=== PATIENT | female | born 1990 | race Caucasian/White ===

== ENCOUNTER 2022-10-19 12:29 | Emergency (ER) | payer OTHER, SELFPAY ==
[2022-10-19 13:27] VITALS: BP 148/92; PULSE 105; RESP 16; O2SAT 100; BMI 23.0
--- NOTE | 2022-10-19 13:33 | ED_ITS ---
HPI - General Adult General Chief complaint: Vaginal Bleeding Stated complaint: Possible miscarriage Time Seen by Provider: 10/19/22 13:06 History of Present Illness HPI narrative: pt here with nausea, vomiting since this am after breakfast, has since developed chest pain and SOB, right leg pain 32-year-old woman presenting to the emergency department with concern of some vaginal bleeding. She did take a test picture here she believes is a faint line. Has been trying to become . Does have 1 child. Bleeding just today that seems like menstrual level bleeding. Denies nausea. Related Data Home Medications Medication Instructions Recorded Confirmed No Known Home Medications 10/19/22 10/19/22 Allergies Allergy/AdvReac Type Severity Reaction Status Date / Time Sulfa (Sulfonamide Allergy Severe Hive Verified 10/19/22 13:32 Antibiotics) Review of Systems Status of ROS: Reports: 6 or more systems reviewed and unremarkable except as noted in History and below [facility] Social History Smoking Status: Never smoker Non-prescribed substance use: denies use Exam Narrative: Exam Narrative: Energetic. Positive affect. Breathing easily. NAD. Skin is warm and dry. She is well-perfused without edema. Heart is in an elevated rate but regular rhythm. Abdomen is soft mildly uncomfortable to palpation the suprapubic area. No masses. No flank pain. exam was not done. Const: Vital Signs, click to edit/add: Vital Signs - 24 hr 10/19/22 13:27 Pulse Rate [Pulse Oximeter] 105 H Respiratory Rate 16 Blood Pressure [Ri ght Upper Arm] 148/92 H Pulse Oximetry 109 H Oxygen Delivery Me thod Room Air Documenting provider has reviewed patient's vital signs: yes Course Vital Signs Vital signs: Initial Vital Signs Pulse Rate 105 H 10/19/22 13:27 Pulse Rhythm Regular 10/19/22 13:27 Respiratory Rate 16 10/19/22 13:27 Blood Pressure 148/92 H 10/19/22 13:27 Blood Pressure Mean 110 H 10/19/22 13:27 Pulse Oximetry 100 10/19/22 13:27 Oxygen Delivery Method Room Air 10/19/22 13:27 Vital Signs Pulse Rate 105 H 10/19/22 13:27 Respiratory Rate 16 10/19/22 13:27 Blood Pressure 148/92 H 10/19/22 13:27 Pulse Oximetry 100 10/19/22 13:27 Oxygen Delivery Method Room Air 10/19/22 13:27 Temperature 97.6 F 10/19/22 16:19 Pulse Rate 98 10/19/22 16:19 Respiratory Rate 16 10/19/22 16:19 Blood Pressure 130/78 10/19/22 16:19 Pulse Oximetry 97 10/19/22 16:19 Oxygen Delivery Method Room Air 10/19/22 13:27 Medical Decision Making MDM Narrative Medical decision making narrative: Will check urine for infection and serum quantitative hCG and hemoglobin and blood type. This could be menses. Could be urinary tract infection or atypical kidney stone. Does not require any interventions at this time. Urinalysis positive for blood. HCG is near inconsistent with though not 0. Blood type A positive should not need RhoGAM. INDICATION: Positive home test. Vaginal bleeding. TECHNIQUE: Ultrasound pelvis transvaginal for better assessment or to better visualize the endometrium. COMPARISON: None. FINDINGS: Uterus: Normal echotexture of the myometrium. No masses. Endometrium: Transvaginal imaging was performed to better evaluate the endometrium. Endometrial thickness measures 5 mm. No sign of endometrial mass or fluid. Right ovary 2.2 x 1.3 x 3.5 cm. Left ovary 1.6 x 1.6 x 2.1 cm. No ovarian or adnexal masses. Cul-de-sac: No significant free fluid. IMPRESSION: of unknown location. No intrauterine gestational sac. No adnexal findings to indicate ectopic . Consider short interval follow-up pelvic ultrasound. See patient discharge plan. Lab Data Lab results reviewed: Yes I reviewed the patient's lab results Labs: Lab Results 10/19/22 10/19/22 Range/Units 13:55 14:28 Hgb 13.9 (12.0-16.0) gm/dL HCG, Quant 7.07 mIU/mL Urine Color Yellow (Yellow) Urine Appearance Clear (Clear) Urine pH 7.0 (5.0-8.5) Ur Specific [place] 1.025 (1.000-1.030) Urine Protein Negative (Negative) Urine Glucose (UA) Negative (Negative) Urine Ketones Negative (Negative) Urine Blood 2+ A (Negative) Urine Nitrite Negative (Negative) Urine Bilirubin Negative (Negative) Urine Urobilinogen 0.2 (0.2-1.0) Ur Leukocyte Esterase Negative (Negative) Urine RBC 25-50 A (0-2) Urine WBC 0-2 (0-5) Ur Squamous Epith Cells Few (None-Few) Urine Bacteria Few A (None) Blood Type A Positive Discharge Plan Discharge Clinical Impression: Vaginal bleeding Patient Disposition: Home, Self-Care Condition: Stable Additional Instructions: Stay well-hydrated. Since your blood type is A positive you do not need any RhoGAM. You have an appointment on Saturday in primary care. Recommendations would be to repeat the serum quantitative hCG for trend. Further recommendations for example for ultrasound, would be pending this result. Return otherwise for marked increase in pain or degree of bleeding such that you're soaking through 1 heavy pad an hour for 2 consecutive hours, lightheadedness, shortness of breath, chest pain. Prescriptions: No Action No Known Home Medications Follow Up/Referrals: Micaela Arshad PA-C [Referring] - Stand Alone Forms: [employer] Info Instructions
--- NOTE | 2022-10-19 13:45 | CRLHL7_ITS ---
For Patients: As a result of the Cures Act, medical imaging exams and procedure reports are released immediately into your electronic medical record. You may view this report before your referring provider. If you have questions, please contact your health care provider. INDICATION: Positive home test. Vaginal bleeding. TECHNIQUE: Ultrasound pelvis transvaginal for better assessment or to better visualize the endometrium. COMPARISON: None. FINDINGS: Uterus: Normal echotexture of the myometrium. No masses. Endometrium: Transvaginal imaging was performed to better evaluate the endometrium. Endometrial thickness measures 5 mm. No sign of endometrial mass or fluid. Right ovary 2.2 x 1.3 x 3.5 cm. Left ovary 1.6 x 1.6 x 2.1 cm. No ovarian or adnexal masses. Cul-de-sac: No significant free fluid. IMPRESSION: of unknown location. No intrauterine gestational sac. No adnexal findings to indicate ectopic . Consider short interval follow-up pelvic ultrasound. Dictated by Joseph Castellon MD @ 10/19/2022 2:52:46 PM (Electronically Signed)
[2022-10-19 14:24] LABS: Appearance Urine Clear (Clear); Bilirubin Urine Negative (Negative); Blood Urine 2+ (Negative); Color Urine Yellow (Yellow); Glucose Urine Negative (Negative); Ketones Urine Negative (Negative); Leukocyte Esterase Urine Negative (Negative); Nitrite Urine Negative (Negative); Protein Urine Negative (Negative); Specific Gravity Urine 1.025 (1.000-1.030); Urobilinogen Urine 0.2 (0.2-1.0)
[2022-10-19 14:40] LABS: Hemoglobin* 13.9 gm/dL (12.0-16.0)
[2022-10-19 14:44] LABS: Bacteria Urine Few; RBC Urine 25-50 (0-2); Squamous Epithelial Cell Urine Few (None-Few); WBC Urine 0-2 (0-5)
[2022-10-19 15:10] LABS: HCG Quantitative* 7.07 mIU/mL
[2022-10-19 16:19] VITALS: BP 130/78; PULSE 98; RESP 16; TEMP 36.4; O2SAT 97
== END 2022-10-19 16:20 | disposition home or self-care (01) ==
PROVIDERS: Emergency Provider Family Medicine; PCP Student in an Organized Health Care Education/Training Program
DX: N93.8 Other specified abnormal uterine and vaginal bleeding (principal)
CPT/HCPCS: 36415; 76817; 81001; 84702; 85018; 86900; 86901; 87086; 99283; 99284